=== PATIENT | male | born 1955 | race African-American/Black ===

== ENCOUNTER → 2022-05-15 | Day surgery (SDC) | payer MEDICARE, MEDICAID ==
[~2022-05-15] VITALS: Ht 175.3 cm; Wt 74.8 kg
[~2022-05-15] MED LIST: AMLO5TAB88 PO; DEXAMETHASONE 4MG/ML 1ML VIAL ONE; FENTANYL CITRATE/PF 50MCG/ML 2ML VIAL IV PRN; FENTANYL CITRATE/PF 50MCG/ML 2ML VIAL ONE; HYDR-4009 PO; LACTATED RINGERS 1,000 ML IV SCH; MEPERIDINE HCL/PF 25MG/ML CPJ IV PRN; METOCLOPRAMIDE HCL 10MG/2ML VIAL ONE; MIDAZOLAM HCL 2 MG/2 ML VIAL ONE; OMEP40CA20 PO; ONDANSETRON HCL 4MG/2ML INJ IV PRN; ONDANSETRON HCL 4MG/2ML INJ ONE; PROPOFOL 200MG/20ML VIAL IV ONE; SIMV-43 PO
[2022-05-15 10:44] VITALS: BP 140/79
== END | disposition home or self-care (01) ==
LOC: OR 06:18
PROVIDERS: ATTEND Urology
DX: C67.9 Malignant neoplasm of bladder, unspecified (principal); I10 Essential (primary) hypertension; K21.9 Gastro-esophageal reflux disease without esophagitis; F41.9 Anxiety disorder, unspecified; Z79.899 Other long term (current) drug therapy; Z98.890 Other specified postprocedural states
CPT/HCPCS: 52234; 88305; 93005; J1100; J2175; J2250; J2405; J2704; J2765; J3010

== ENCOUNTER → 2022-08-19 | Day surgery (SDC) | payer MEDICARE, OTHER ==
[~2022-08-19] VITALS: Ht 175.3 cm; Wt 74.8 kg
[~2022-08-19] MED LIST changes: -DEXAMETHASONE 4MG/ML 1ML VIAL ONE; -FENTANYL CITRATE/PF 50MCG/ML 2ML VIAL IV PRN; +GLYCOPYRROLATE 0.2 MG/ML 2ML VIAL ONE; +HYDROCODONE/ACETAMINOPHEN 5/325MG TABLET PO PRN; +LIDOCAINE HCL 1% 10 MG/ML 10ML VIAL ONE; -MEPERIDINE HCL/PF 25MG/ML CPJ IV PRN; -METOCLOPRAMIDE HCL 10MG/2ML VIAL ONE; +MITOMYCIN 0.2 MG KIT OP NR; +MITOMYCIN 20 MG IV SCH; +NALOXONE HCL 0.4MG/ML VIAL IV PRN; +NEOSTIGMINE METHYLSULFATE 1MG/ML 10 ML VIAL ONE; -ONDANSETRON HCL 4MG/2ML INJ ONE; +ROCURONIUM BROMIDE 10MG/ML VIAL 5ML IV ONE
[2022-08-19 10:38] VITALS: BP 151/95
== END | disposition home or self-care (01) ==
LOC: OR 05:58
PROVIDERS: ATTEND Urology
DX: C67.9 Malignant neoplasm of bladder, unspecified (principal); R31.0 Gross hematuria; I10 Essential (primary) hypertension; E78.00 Pure hypercholesterolemia, unspecified; Z79.899 Other long term (current) drug therapy; Z98.890 Other specified postprocedural states; Z20.822 Contact with and (suspected) exposure to COVID-19
CPT/HCPCS: 52235; 87426; 88305; 93005; C9803; J2250; J2704; J2710; J3010; J3490; J9280